=== PATIENT | female | born 1985 | race Caucasian/White ===

== ENCOUNTER 2019-04-01 23:59 | Day surgery (SDC) | payer OTHER, SELFPAY ==
--- OUTSIDE RECORDS SUMMARY | 2019-04-02 00:01 | XMS REPORT | Summary of Care ---
:1985 Author Organization [facility] Address [address] [place] [address]- Encounter HQ Curtisr_regis(FIN) [id number] Date(s): 01/19/18 - 01/19/18 [facility] [address] [place] [address]- [place] Discharge Disposition: Home or Self Care Attending Physician: Yani Swanson MD Vital Signs Most recent to oldest [Reference Range]: 1 Height 182.88 cm (01/19/18 11:18 AM) Temperature Oral [96.4-99.1 DegF] 97.4 DegF (01/19/18 11:18 AM) Blood Pressure [90-140/60-90 mmHg] 107/72 mmHg (01/19/18 11:18 AM) Respiratory Rate [14-20 BRMIN] 18 BRMIN (01/19/18 11:18 AM) Peripheral Pulse Rate [60-100 bpm] 56 bpm *LOW* (01/19/18 11:18 AM) Weight 78.409 kg (01/19/18 11:18 AM) Body Mass Index 23.44 m2 (01/19/18 11:18 AM) Problem List Condition Effective Dates Status Health Status Informant No Chronic Problems Active Chickenpox(Confirmed) Resolved Allergies, Adverse Reactions, Alerts Substance Reaction Severity Status penicillins Active Codeine Sulfate Active Medications Flonase 0.05 mg/inh nasal spray 2 spray, NASAL, Daily, # 16 gm, 1 Refill(s) Start Date: 01/19/18 Status: Ordered Results No data available for this section Immunizations No data available for this section Procedures Procedure Date Related Diagnosis Body Site Status Bunionectomy Completed Social History Social History Type Response Substance Abuse Use: None. Employment/School Status: Employed. 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 Alcohol Never Smoking Status Never smoker; Exposure to Tobacco Smoke None; Cigarette Smoking Last 365 Days No; Reg Smoking Cessation Counseling No entered on: 04/19/18 Assessment and Plan No data available for this section
--- OUTSIDE RECORDS SUMMARY | 2019-04-02 00:01 | XMS REPORT | Clinical Summary ---
:1985 Author Organization [facility] Address [address] [place] [address] Care Team Providers Name Role Phone Asked, No Pcp Primary Care Provider Unavailable Allergies Active Allergy Reactions Severity Noted Date Comments Codeine 08/22/2017 Hydrocodone Hives Low 08/17/2012 Penicillins Hives Low 08/17/2012 Medications Medication Sig Dispensed Refills Start Date End Date Status azelastine (ASTELIN) U 2 SPRAYS IEN 0 04/19/2018 Active 137 mcg (0.1 %) nasal BID FOR 10 DAYS spray valACYclovir (VALTREX) TK 1 T PO QD UTD 1 04/25/2018 Active 500 MG tablet Active Problems Problem Noted Date Closed fracture of lateral portion of left tibial plateau 07/24/2018 Knee effusion, left 07/11/2018 Acute pain of left knee 07/11/2018 Abdominal pain during in third trimester 08/22/2017 40 weeks gestation of 08/22/2017 08/22/2017 Encounters Date Type Specialty Care Team Description 10/06/2018 Office Visit Orthopedic Surgery Raghu Garcia Closed fracture of MD Shen lateral portion of left tibial plateau with routine healing, subsequent encounter (Primary Dx) 08/18/2018 Office Visit Orthopedic Surgery Rgahu Garcia Closed fracture of lateral portion of left tibial plateau, initial encounter (Primary Dx); MD Shen Sprain of medial collateral ligament of left knee, subsequent encounter 07/21/2018 Hospital Encounter Radiology Raghu Garcai MD 07/21/2018 Office Visit Orthopedic Raghu Nava Closed fracture of lateral portion of left tibial plateau, initial encounter (Primary Dx); MD Shen Sprain of medial collateral ligament of left knee, subsequent encounter 07/19/2018 Orders Only Orthopedic Surgery Madan, Acute pain of left knee; VICENTE Singletary Knee effusion, left 07/11/2018 Office Visit Orthopedic Surgery Raghu Garcia Acute pain of left knee (Primary Dx); MD Shen Knee effusion, left after 04/01/2018 Social History Tobacco Use Types Packs/Day Years Used Date Never Smoker Smokeless Tobacco: Never Used Alcohol Use Drinks/Week oz/Week Comments No Sex Assigned at Date Recorded Not on file Job Start Date Occupation Industry Not on file Not on file Not on file Travel History Travel Start Travel End No recent travel history available. Last Filed Vital Signs Vital Sign Reading Time Taken Blood Pressure 115/72 10/06/2018 9:52 AM OFFENSIVE COORDINATOR Pulse - - Temperature - - Respiratory Rate - - Oxygen Saturation - - Inhaled Oxygen Concentration - - Weight 77.1 kg (170 lb) 10/06/2018 9:52 AM OFFENSIVE COORDINATOR Height 182.9 cm (6') 10/06/2018 9:52 AM OFFENSIVE COORDINATOR Body Mass Index 23.06 10/06/2018 9:52 AM OFFENSIVE COORDINATOR Plan of Treatment Health Maintenance Due Date Last Done Comments INFLUENZA VACCINE 06/07/2019 08/08/2017 Procedures Procedure Name Priority Date/Time Associated Diagnosis Comments XR KNEE 3 VW LEFT Routine 10/06/2018 9:53 AM Closed fracture of Results for this OFFENSIVE COORDINATOR lateral portion of procedure are in left tibial plateau the results with routine section. healing, subsequent encounter XR KNEE 3 VW LEFT Routine 08/18/2018 11:02 AM Closed fracture of Results for this CDT lateral portion of procedure are in left tibial plateau, the results initial encounter section. MRI KNEE WO Routine 07/19/2018 3:07 PM Acute pain of left CONTRAST LEFT CDT knee Knee effusion, left MRI LOWER EXTREMITY Routine 07/18/2018 12:00 AM Results for this EXTERNAL STUDY CDT procedure are in the results section. XR KNEE 3 VW LEFT Routine 07/11/2018 10:13 AM Left knee pain, Results for this CDT unspecified procedure are in chronicity the results section. after 04/01/2018 Results XR Knee 3 Vw Left (10/06/2018 9:53 AM OFFENSIVE COORDINATOR)Only the most recent of3 resultswithin the time period is included. Specimen Narrative Performed At Knee films show the fracture is not visible. No specific abnormalities. [facility] Performing Organization Address City/State/Zipcode Phone Number [facility] [address] [place] [address] MRI Knee Left Wo Contrast (07/19/2018 3:07 PM CDT) Narrative Performed At Performing Organization Address City/State/Zipcode Phone Number [facility] [address] [place] [address] MRI Lower Extremity External Study (07/18/2018 12:00 AM CDT) Specimen Narrative Performed At This exam was not acquired at a [facility] facility and has not been [facility] interpreted by a [facility] Provider.The exam was imported into our imaging system for comparisons purposes. Performing Organization Address City/State/Zipcode Phone Number [facility] [address] [place] [address] after 04/01/2018 Advance Directives Patient has advance care planning documents, and code status on file. For more information, please contact:Presley Hughes[address] [place] [address] Code Status Date Activated Date Inactivated Comments Full Code 08/22/2017 6:44 AM 08/23/2017 8:47 AM Code Status decision reached by: Patient Full Code 08/22/2017 6:31 AM 08/22/2017 6:44 AM Code Status decision reached by: Patient
--- OUTSIDE RECORDS SUMMARY | 2019-04-02 00:01 | XMS REPORT | Summary of Care ---
:1985 Author Organization [facility] Address [address] [address]- Encounter HQ Harvey_regis(FIN) [id number] Date(s): 04/19/18 - 04/19/18 [facility] [place] [address]- Discharge Disposition: Home or Self Care Attending Physician: Stiven Bacon MD Vital Signs Most recent to oldest [Reference Range]: 1 Height 182.88 cm (04/19/18 1:10 PM) Temperature Oral [96.4-99.1 DegF] 98.3 DegF (04/19/18 1:10 PM) Blood Pressure [90-140/60-90 mmHg] 116/73 mmHg (04/19/18 1:10 PM) Peripheral Pulse Rate [60-100 bpm] 75 bpm (04/19/18 1:10 PM) Weight 75.114 kg (04/19/18 1:10 PM) Body Mass Index 22.46 m2 (04/19/18 1:10 PM) Problem List Condition Effective Dates Status Health Status Informant No Chronic Problems Active Chickenpox(Confirmed) Resolved Allergies, Adverse Reactions, Alerts Substance Reaction Severity Status penicillins Active Codeine Sulfate Active Medications Astelin 137 mcg/inh nasal spray 2 spray, NASAL, BID, # 1 ea, 0 Refill(s), Pharmacy: [facility] [id number] Start Date: 04/19/18 Stop Date: 04/29/18 Status: OrderedvalACYclovir 500 mg oral tablet 500 mg=1 tab, PO, Daily, 0 Refill(s) Start Date: 04/19/18 Status: OrderedZithromax Z-Nitesh 250 mg oral tablet See Instructions, Take 2 tablets by mouth the first day then 1 tablet by mouth days 2-5., X 5 day, #6 tab, 0 Refill(s), Pharmacy: [facility] [id number] Start Date: 04/19/18 Stop Date: 04/24/18 Status: Ordered Results No data available for [...]
--- OUTSIDE RECORDS SUMMARY | 2019-04-02 00:01 | XMS REPORT | Continuity of Care Document ---
:1985 Author Organization Interface Problems Problem Status Onset Classification Date Comments Source Date Reported Chickenpox Resolved Problem 04/27/2018 [facility] Medications Medication Details Route Status Patient Ordering Order Source Instructions Provider Date {6 (Azithromycin See Active 250 MG Oral Instructions 018 Medical Tablet , Take 2 Group [Zithromax]) } tablets by Pack [Z-PAKS] mouth the first day then 1 tablet by mouth days 2-5., X 5 day, # 6 tab, 0 Refill(s), Pharmacy: [facility] [id number] Azelastine 2 spray, Active hydrochloride NASAL, BID, 018 Medical 0.137 MG/ACTUAT # 1 ea, 0 Group Metered Dose Refill(s), Nasal [facility]: [[facility]] [facility] [id number] valACYclovir 500 500 mg=1 Active mg oral tablet tab, PO, 018 Medical Daily, 0 Group Refill(s) Fluticasone 2 spray, Active propionate 0.05 NASAL, 018 Medical MG/ACTUAT Daily, # 16 Group Metered Dose gm, 1 Nasal [place] Refill(s) [Flonase] Allergies, Adverse Reactions, Alerts Substance Category Reaction Severity Reaction Status Date Comments Source type Reported penicillins Assertion Drug Active allergy Medical Group Codeine Assertion Drug Active Sulfate allergy Medical Group Immunizations Immunization Date Given Site Status Last Updated Comments Source Results Order Results Value Reference Date Interpretation Comments Source Name Range Vital Signs Vital Sign Value Date Comments Source Weight 75.114 04/19/2018 Medical Group BMI Calculated 22.46 04/19/2018 Medical [facility] Height 182.88 cm 04/19/2018 Medical Group Systolic (mm Hg) 116 04/19/2018 Medical Group Diastolic (mm Hg) 73 04/19/2018 Medical Group Heart Rate 75 04/19/2018 Medical Group Temperature Oral (F) 98.3 F 04/19/2018 Medical [facility] Heart Rate 56 01/19/2018 Medical Group Systolic (mm Hg) 107 01/19/2018 Medical Group Diastolic (mm Hg) 72 01/19/2018 Medical Group Height 182.88 cm 01/19/2018 Medical Group Temperature Oral (F) 97.4 F 01/19/2018 Medical Group Respitory Rate 18 01/19/2018 Medical Group Weight 78.409 01/19/2018 Medical Group BMI Calculated 23.44 01/19/2018 Medical [facility] Encounters Location Location Encounter Encounter Reason Attending ADM DC Status Source Details Type Number For Provider Date Date Visit Outpatient [id number] MAGALI AC 09/15 [facility] Outpatient [id number] YANI 01/19 [facility] Outpatient [id number] Yani 01/19 01/20 [facility] [facility] Outpatient [id number] [place] 04/19 [facility] Outpatient [id number] St[facility] 04/19 04/20 [facility]2017 [facility] Procedures Procedure Code Date Perfomer Comments Source Bunionectomy [id number] Medical [facility]
[2019-04-02 00:43] LABS: Absolute Lymphocytes (CBC) 2.3 K/uL (0.7-4.9); Absolute Monocytes 0.6 K/uL (0.1-1.3); Absolute Neutrophil 11.8 K/uL (1.8-8.0); Basophils % 0.3 % (0-1.3); Eosinophils % 0.4 % (0-4.4); Hematocrit 40.4 % (36.0-45.0); Lymphocytes % 15.6 % (15.3-44.8); MPV 8.6 fL (7.6-11.3); Monocytes % 4.2 % (3.3-12.3); RBC Red Blood Cell Count 4.38 M/uL (3.86-4.86)
[2019-04-02] MEDS ORDERED: NA CHLORIDE 0.9% 1,000 ML ONE (00:43)
[2019-04-02] MEDS ORDERED: MORPHINE 2 MG/ML SYR ONE (00:43)
[2019-04-02] MEDS ORDERED: ONDANSETRON 4 MG/2 ML VIAL ONE (00:43)
[2019-04-02 00:51] LABS: Urine Blood TRACE (NEG); Urine Glucose NEGATIVE (NEG); Urine Protein NEGATIVE (NEG); Urine Specific Gravity >1.030 (1.005-1.030); Urine pH 5.5 (5.0-7.0)
[2019-04-02 00:55] LABS: Urine Bacteria <20 /HPF (<20); Urine Culture Reflex Order NOT NEEDED; Urine RBC <5 /HPF (NONE SEEN)
[2019-04-02 01:00] LABS: Bilirubin Direct 0.1 mg/dL (0-0.2); Bilirubin Total 0.3 mg/dL (0.2-1.0); Potassium 3.3 mmol/L (3.5-5.1); Protein, Total 7.3 g/dL (6.4-8.2)
[2019-04-02] MEDS ORDERED: CEFOXITIN/SWI 1gm 1 GM/10 ML SYR ONE (05:58)
[2019-04-02] MEDS ORDERED: NA CHLORIDE 0.9% 50 ML IV ONE (05:59)
--- NOTE | 2019-04-02 06:11 | EDPHYS ---
Physician Documentation [facility] Name: Shelia Adams Age: 33 yrs Sex: Female : 1985 Arrival Date: 04/01/2019 Time: 23:59 Bed 13 Private MD: ED Physician Aaron Ortega HPI: 04/02 00:15 This 33 yrs old Female presents to ER via Ambulatory with complaints of cp Abdominal Pain. 00:15 The patient presents with abdominal pain right adnexal area. Onset: The cp symptoms/episode began/occurred suddenly, today. The symptoms do not radiate. 00:15 Associated signs and symptoms: Pertinent positives: nausea and vomiting, Pertinent cp negatives: blood in stools, constipation, diarrhea, dysuria, fever, vaginal discharge. 00:15 The symptoms are described as constant. Modifying factors: the symptoms are aggravated cp by movement, pressure. 00:15 Patient reports sudden onset of RLQ abdomen pain while at movies tonight. cp Historical: - Allergies: 00:02 PENICILLINS; la1 00:02 Codeine; la1 - PMHx: 00:02 None; la1 - Immunization history:: Adult Immunizations up to date. - Social history:: Smoking status: Patient/guardian denies using tobacco. - Ebola Screening: : No symptoms or risks identified at this time. ROS: 00:20 Constitutional: Negative for body aches, chills, fever, poor PO intake. cp 00:20 Eyes: Negative for injury, pain, redness, and discharge. cp 00:20 ENT: Negative for drainage from ear(s), ear pain, sore throat, difficulty swallowing, difficulty handling secretions. 00:20 Cardiovascular: Negative for chest pain, palpitations. 00:20 Respiratory: Negative for cough, shortness of breath, wheezing. 00:20 Abdomen/GI: Positive for abdominal pain, nausea, vomiting, of the right lower quadrant, Negative for diarrhea, constipation, black/tarry stool, rectal bleeding. 00:20 : Negative for urinary symptoms, vaginal bleeding, vaginal discharge. 00:20 Skin: Negative for cellulitis, rash. 00:20 All other systems are negative. Exam: 00:23 Constitutional: The patient appears in no acute distress, alert, awake, non-toxic, well cp developed, well nourished, uncomfortable. 00:23 Head/Face: Normocephalic, atraumatic. cp 00:23 Eyes: Periorbital structures: appear normal, Conjunctiva: normal, no exudate, no injection, Sclera: no appreciated abnormality, Lids and lashes: appear normal, bilaterally. 00:23 ENT: External ear(s): are unremarkable, Nose: is normal, Mouth: is normal, Posterior pharynx: is normal, airway is patent, no erythema, no exudate. 00:23 Neck: ROM/movement: is normal, is supple, without pain. 00:23 Chest/axilla: Inspection: normal, Palpation: is normal, no crepitus, no tenderness. 00:23 Cardiovascular: Rate: normal, Rhythm: regular. 00:23 Respiratory: the patient does not display signs of respiratory distress, Respirations: normal, no use of accessory muscles, no retractions, no splinting, no tachypnea, labored breathing, is not present, Breath sounds: are clear throughout, no decreased breath sounds, no stridor, no wheezing. 00:23 Abdomen/GI: Inspection: abdomen appears normal, Bowel sounds: active, Palpation: soft, in all quadrants, moderate abdominal tenderness, in the right lower quadrant, rebound tenderness, is not appreciated, voluntary guarding, is elicited in the right lower quadrant. 00:23 Back: pain, is absent, ROM is normal. Vital Signs: 00:03 BP 111 / 67; Pulse 83; Resp 16; Temp 98.2; Pulse Ox 98% on R/A; Weight 70.31 kg; Height la1 6 ft. 0 in. (182.88 cm); Pain 5/10; 01:00 BP 105 / 61; Pulse 89; Resp 18; Pulse Ox 100% ; Pain 2/10; rr5 02:00 BP 97 / 60; Pulse 80; Resp 16; Pulse Ox 99% on R/A; Pain 2/10; rr5 03:00 BP 102 / 62; Pulse 87; Resp 17; Pulse Ox 98% ; rr5 04:00 BP 95 / 61; Pulse 81; Resp 18; Pulse Ox 99% ; rr5 05:33 BP 98 / 60; Pulse 65; Resp 16; Temp 98; Pulse Ox 99% on R/A; rr5 06:48 BP 91 / 54; Pulse 61; Resp 17; Temp 98.5; Pulse Ox 99% on R/A; rr5 08:00 BP 89 / 58; Pulse 64; Resp 18; Temp 98.0; Pulse Ox 99% on R/A; Pain 2/10; ph 00:03 Body Mass Index 21.02 (70.31 kg, 182.88 cm) la1 MDM: 00:07 Patient medically screened. cp 04/02 00:16 Order name: Basic Metabolic Panel; Complete Time: 01:08 cp 04/02 00:16 Order name: CBC with Diff; Complete Time: 01:08 cp 04/02 02:50 Interpretation: Normal except: WBC 14.8; MITCH% 79.5; NEUT A 11.8. cp 04/02 00:16 Order name: Creatinine for Radiology; Complete Time: 01:08 cp 04/02 00:16 Order name: Hepatic Function; Complete Time: 01:08 cp 04/02 00:16 Order name: Lipase; Complete Time: 01:08 cp 04/02 00:18 Order name: Urine Microscopic Only; Complete Time: 01:08 cp 04/02 02:51 Interpretation: Reviewed. cp 04/02 00:18 Order name: CT Abd/Pelvis - W/Contrast cp 04/02 00:33 Order name: US Transvaginal Study (Probe): r/o torsion; Complete Time: 19:56 cp 04/02 19:56 Interpretation: Reviewed report. cp 04/02 00:45 Order name: Urine Dipstick--Ancillary (enter results); Complete Time: 01:08 ag4 04/02 00:45 Order name: Urine --Ancillary (enter results); Complete Time: 01:08 ag4 04/02 00:16 Order name: IV Saline Lock; Complete Time: 01:12 cp 04/02 00:16 Order name: Labs collected and sent; Complete Time: 01:12 cp 04/02 00:18 Order name: Urine Test (obtain specimen); Complete Time: 01:12 cp 04/02 00:18 Order name: Urine Dipstick-Ancillary (obtain specimen); Complete Time: 01:12 cp 04/02 06:22 Order name: NPO EDMS Administered Medications: 00:50 Drug: NS 0.9% 1000 ml Route: IV; Rate: 1 bolus; Site: right antecubital; rr5 02:30 Follow up: Response: No adverse reaction; IV Status: Completed infusion; IV Intake: rr5 1000ml 00:52 Drug: Zofran 4 mg Route: IVP; Site: right antecubital; rr5 02:00 Follow up: Response: No adverse reaction rr5 00:54 Drug: morphine 2 mg Route: IVP; Site: right antecubital; rr5 02:00 Follow up: Response: No adverse reaction rr5 05:50 Dru grams of (cefOXitin 1 grams, NS 0.9% 50 ml) Route: IVPB; Infused Over: 30 mins; rr5 Site: right antecubital; 06:20 Follow up: Response: No adverse reaction; IV Status: Completed infusion; IV Intake: [id number] Disposition: 04/02/19 06:11 Hospitalization ordered by Shoaib Martinez for Inpatient Admission. Preliminary diagnosis is Acute appendicitis. - Bed requested for Telemetry/MedSurg (Inpatient). - Status is Inpatient Admission. ph - Condition is Stable. - Problem is new. - Symptoms are unchanged. UTI on Admission? No Addendum: 04/03/2019 19:37 Co-signature as Attending Physician, Aaron Ortega MD. g s Signatures: Dispatcher [employer] EDMS nIocente Galvan RN RN la1 Glenny Scruggs RN RN ph Page, Corey, PA PA cp Starr, Gregory, MD MD Med Marie RN RN rr5 Corrections: (The following items were deleted from the chart) 04/02 08:18 06:11 Hospitalization Ordered by Shoaib Martinez MD for Inpatient Admission. Preliminary ph diagnosis is Acute appendicitis. Bed requested for Telemetry/MedSurg (Inpatient). Status is Inpatient Admission. Condition is Stable. Problem is new. Symptoms are unchanged. UTI on Admission? No. gs
--- NOTE | 2019-04-02 06:11 | ER ---
Nurse[facility] Name: Shelia Adams Age: 33 yrs Sex: Female : 1985 Arrival Date: 04/01/2019 Time: 23:59 Bed 13 Private MD: Diagnosis: Acute appendicitis Presentation: 04/02 00:02 Presenting complaint: Patient states: Severe RLQ pain and vomiting. Transition of care: la1 patient was not received from another setting of care. Onset of symptoms was April 02, 2019. Risk Assessment: Do you want to hurt yourself or someone else? Patient reports no desire to harm self or others. Initial Sepsis Screen: Does the patient meet any 2 criteria? No. Patient's initial sepsis screen is negative. Does the patient have a suspected source of infection? No. Patient's initial sepsis screen is negative. Care prior to arrival: None. 00:02 Method Of Arrival: Ambulatory la1 00:02 Acuity: MANDY 3 la1 Historical: - Allergies: 00:02 PENICILLINS; la1 00:02 Codeine; la1 - PMHx: 00:02 None; la1 - Immunization history:: Adult Immunizations up to date. - Social history:: Smoking status: Patient/guardian denies using tobacco. - Ebola Screening: : No symptoms or risks identified at this time. Screenin:30 Abuse screen: Denies threats or abuse. Denies injuries from another. Nutritional rr5 screening: No deficits noted. Tuberculosis screening: No symptoms or risk factors identified. Fall Risk IV access (20 points). Total [place] Fall Scale indicates No Risk (0-24 pts). Assessment: 00:05 General: Appears in no apparent distress. uncomfortable, Behavior is calm, cooperative, rr5 appropriate for age. Pain: Complains of pain in abdomen Pain does not radiate. Pain currently is 5 out of 10 on a pain scale. Quality of pain is described as aching, Pain began gradually, Is intermittent. 00:05 Neuro: Level of Consciousness is awake, alert, obeys commands, Oriented to person, rr5 place, time, situation, Appropriate for age. Cardiovascular: Capillary refill < 3 seconds Patient's skin is warm and dry. Respiratory: Airway is patent Respiratory effort is even, unlabored, Respiratory pattern is regular, symmetrical. GI: Abdomen is flat, Bowel sounds present X 4 quads. Abd is soft Guarding noted in right lower quadrant Reports lower abdominal pain, upper abdominal pain, nausea, vomiting. : No signs and/or symptoms were reported regarding the genitourinary system. EENT: No signs and/or symptoms were reported regarding the EENT system. Derm: Skin is intact, Skin temperature is warm. Musculoskeletal: Capillary refill < 3 seconds, Range of motion: intact in all extremities. 01:10 Reassessment: Patient appears in no apparent distress at this time. No changes from rr5 previously documented assessment. Patient is alert, oriented x 3, equal unlabored respirations, skin warm/dry/pink. awaiting for CT scan procedure. oral contrast consumed, CT staff informed. 02:00 Reassessment: Patient appears in no apparent distress at this time. Patient is alert, rr5 oriented x 3, equal unlabored respirations, skin warm/dry/pink. Patient states symptoms have improved. 02:33 Reassessment: Patient appears in no apparent distress at this time. Patient is alert, rr5 oriented x 3, equal unlabored respirations, skin warm/dry/pink. no complaints made. awaiting for CT procedure. 03:05 Reassessment: Patient appears in no apparent distress at this time. sent for CT scan. rr5 03:32 Reassessment: Patient appears in no apparent distress at this time. Patient is alert, rr5 oriented x 3, equal unlabored respirations, skin warm/dry/pink. went back from CT scan. 04:10 Reassessment: Patient appears in no apparent distress at this time. asleep on bed rr5 comfortably. 04:50 Reassessment: Dr. james from radiology called ([id number]) relayed the result of rr5 CTscan minimal inflammation of the distal appendix. secondary acute early appendix. ED provider aware. 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. 06:25 Reassessment: Patient appears in no apparent distress at this time. Patient is alert, rr5 oriented x 3, equal unlabored respirations, skin warm/dry/pink. patient decided to stay here for the admission. 06:35 Reassessment: Patient appears in no apparent distress at this time. Patient is alert, rr5 oriented x 3, equal unlabored respirations, skin warm/dry/pink. OR staff called and said they will get the patient going to OR. 07:00 Reassessment: Patient appears in no apparent distress at this time. Patient and/or rr5 family updated on plan of care and expected duration. Pain level reassessed. Patient is alert, oriented x 3, equal unlabored respirations, skin warm/dry/pink. no complaints made awaiting for OR staff. 08:00 Reassessment: Patient appears in no apparent distress at this time. Patient and/or ph family updated on plan of care and expected duration. Pain level reassessed. Patient is alert, oriented x 3, equal unlabored respirations, skin warm/dry/pink. Pt resting quietly, rates pain 5/10 and denies nausea at this time, family at bedside, waiting to go to surgery. 08:10 Reassessment: Pt taken to OR via stretcher. ph Vital Signs: 00:03 BP 111 / 67; Pulse 83; Resp 16; Temp 98.2; Pulse Ox 98% on R/A; Weight 70.31 kg; Height la1 6 ft. 0 in. (182.88 cm); Pain 5/10; 01:00 BP 105 / 61; Pulse 89; Resp 18; Pulse Ox 100% ; Pain 2/10; rr5 02:00 BP 97 / 60; Pulse 80; Resp 16; Pulse Ox 99% on R/A; Pain 2/10; rr5 03:00 BP 102 / 62; Pulse 87; Resp 17; Pulse Ox 98% ; rr5 04:00 BP 95 / 61; Pulse 81; Resp 18; Pulse Ox 99% ; rr5 05:33 BP 98 / 60; Pulse 65; Resp 16; Temp 98; Pulse Ox 99% on R/A; rr5 06:48 BP 91 / 54; Pulse 61; Resp 17; Temp 98.5; Pulse Ox 99% on R/A; rr5 08:00 BP 89 / 58; Pulse 64; Resp 18; Temp 98.0; Pulse Ox 99% on R/A; Pain 2/10; ph 00:03 Body Mass Index 21.02 (70.31 kg, 182.88 cm) la1 ED Course: 04/01 23:59 Patient arrived in ED. am2 04/02 00:03 Triage completed. la1 00:03 Arm band placed on left wrist. la1 00:05 Med Marie, MARK is Primary Nurse. rr5 00:07 Devin Ramos PA is PHCP. cp 00:07 Aaron Ortega MD is Attending Physician. cp 00:50 Inserted saline lock: 22 gauge in right antecubital area, using aseptic technique. rr5 ,using aseptic technique. inserted by prabhakar Blood collected. 03:52 US Transvaginal Study (Probe): r/o torsion In Process Unspecified. EDMS 04:21 CT Abd/Pelvis - W/Contrast In Process Unspecified. EDMS 06:11 Shoaib Martinez MD is Hospitalizing Provider. gs 07:30 Patient has correct armband on for positive identification. Placed in gown. Bed in low ph position. Call light in reach. Side rails up X 1. Pulse ox on. NIBP on. Door closed. Noise minimized. Warm blanket given. 08:16 No provider procedures requiring assistance completed. Patient admitted, IV remains in ph place. Administered Medications: 00:50 Drug: NS 0.9% 1000 ml Route: IV; Rate: 1 bolus; Site: right antecubital; rr5 02:30 Follow up: Response: No adverse reaction; IV Status: Completed infusion; IV Intake: rr5 1000ml 00:52 Drug: Zofran 4 mg Route: IVP; Site: right antecubital; rr5 02:00 Follow up: Response: No adverse reaction rr5 00:54 Drug: morphine 2 mg Route: IVP; Site: right antecubital; rr5 02:00 Follow up: Response: No adverse reaction rr5 05:50 Dru grams of (cefOXitin 1 grams, NS 0.9% 50 ml) Route: IVPB; Infused Over: 30 mins; rr5 Site: right antecubital; 06:20 Follow up: Response: No adverse reaction; IV Status: Completed infusion; IV Intake: [id number] Intake: 02:30 IV: 1000ml; Total: 1000ml. rr5 06:20 IV: 50ml; Total: 1050ml. rr5 06:55 voided freely. rr5 Output: 06:55 Other: 1; Total: 0ml. rr5 06:55 voided freely. rr5 Outcome: 06:11 Decision to Hospitalize by Provider. 08:17 Admitted to OR accompanied by nurse, family with patient, via stretcher. ph 08:17 Condition: stable 08:17 Instructed on the need for admit. 08:18 Patient left the ED. ph Signatures: Dispatcher [employer] EDMS Inocente Galvan RN RN la1 Glenny Scruggs RN RN ph Devin Ramos PA PA cp Moreno, Amanda am2 Starr, Gregory, MD MD Med Marie RN RN rr5
[2019-04-02] MEDS ORDERED: ONDANSETRON 4 MG/2 ML VIAL IV PRN (06:20)
[2019-04-02] MEDS ORDERED: MORPHINE 4 MG/ML SYR IV PRN (06:20)
[2019-04-02] MEDS ORDERED: D5 0.45 NS 1,000 ML IV SCH (07:00)
[2019-04-02] MEDS ORDERED: D5 0.45 NS 1,000 ML IV ONE (07:05)
[2019-04-02] MEDS ORDERED: Ringers Lactate 1,000 ML IV ONE (08:36)
[2019-04-02] MEDS ORDERED: BUPIVACA 0.25%/EPI 0.0005% MDV 50 ML VIAL ONE (08:44)
[2019-04-02] MEDS ORDERED: SUCCINYLCHOLINE 20 MG/ML (10 ML) IV ONE (09:00)
[2019-04-02] MEDS ORDERED: PROPOFOL 200 MG/20 ML VIAL IV ONE (09:02)
[2019-04-02] MEDS ORDERED: FENTANYL CITR 100 MCG/2 ML ONE (09:02)
[2019-04-02] MEDS ORDERED: MIDAZOLAM HCL 2 MG/2 ML INJ ONE (09:03)
--- NOTE | 2019-04-02 09:28 | RAD REPORT ---
EXAM DESCRIPTION: US - Transvaginal Study Probe - 04/02/2019 3:53 am CLINICAL HISTORY: Pelvic pain COMPARISON: April 02, 2019 cat scan FINDINGS: The uterus measures 8 x 4 x 6 centimeters. An IUD is present within the endometrium of the uterine fundus. Endometrial stripe is not thickened. A fibroid is not seen The ovaries are normal in size and echotexture. Blood flow within the ovaries. An adnexal mass is not visualized. Small amount of free fluid. IMPRESSION: IUD in good position Small amount of free fluid
--- NOTE | 2019-04-02 09:49 | P.OP ---
Preoperative diagnosis: Acute Appendicitis Postoperative diagnosis: Acute Appendicitis Primary procedure: Laparoscopic Appendectomy Anesthesia: GETA + Local Estimated blood loss: <5 cc Specimen: Vermiform Appendix Findings: Early Acute Appendicitis Complications: None Transferred to: Recovery Room Condition: Good
[2019-04-02] MEDS ORDERED: ROCURONIUM 50 MG/5 ML VIAL IV ONE (09:58)
[2019-04-02] MEDS ORDERED: GLYCOPYRROLATE 0.2 MG/ML SYR ONE (09:59)
[2019-04-02] MEDS ORDERED: KETOROLAC 30 MG/ML INJ ONE (10:35)
--- OUTSIDE RECORDS SUMMARY | 2019-04-02 10:37 | XMS REPORT | Clinical Summary ---
:1985 Author Organization [facility] Address [address] [place] [address] Care Team Providers Name Role Phone Asked, [...] (Primary Dx) 08/18/2018 Office Visit Orthopedic Surgery Raghu Garcia Closed fracture of lateral portion of left tibial plateau, initial encounter (Primary Dx); MD Shen Sprain of medial collateral ligament of left knee, subsequent encounter 07/21/2018 Hospital Encounter Radiology Raghu Garcia MD 07/21/2018 Office Visit Orthopedic Raghu Nava [...] Taken Blood Pressure 115/72 10/06/2018 9:52 AM PARTY DIRECTOR Pulse - - Temperature - - Respiratory Rate - - Oxygen Saturation - - Inhaled Oxygen Concentration - - Weight 77.1 kg (170 lb) 10/06/2018 9:52 AM PARTY DIRECTOR Height 182.9 cm (6') 10/06/2018 9:52 AM PARTY DIRECTOR Body Mass Index 23.06 10/06/2018 9:52 AM PARTY DIRECTOR Plan of Treatment Health Maintenance Due Date Last Done Comments INFLUENZA VACCINE 06/07/2019 08/08/2017 Procedures Procedure Name Priority Date/Time Associated Diagnosis Comments XR KNEE 3 VW LEFT Routine 10/06/2018 9:53 AM Closed fracture of Results for this PARTY DIRECTOR lateral portion of procedure are in left [...] Knee 3 Vw Left (10/06/2018 9:53 AM PARTY DIRECTOR)Only the most recent of3 resultswithin the time period is included. Specimen Narrative Performed At Knee films show the fracture is not visible. No specific abnormalities. [facility] Performing Organization Address City/State/Zipcode Phone Number [email or web address] [address] [place] [address] MRI Knee Left Wo Contrast (07/19/2018 3:07 PM CDT) Narrative Performed At Performing Organization Address City/State/Zipcode Phone Number [facility] [address] [place] [address] MRI Lower Extremity External Study (07/18/2018 12:00 AM CDT) Specimen Narrative Performed At This exam was not acquired at a [facility] facility and has not been [facility] interpreted by a [facility] Provider.The exam was imported into our imaging system for comparisons purposes. Performing Organization Address City/State/Zipcode Phone Number [facility] [address] [place] [address] after 04/01/2018 Advance Directives Patient has advance care planning documents, and code status on file. For more information, please contact:Presley Hughes[address] [place] [address] Code Status Date Activated Date Inactivated Comments Full Code 08/22/2017 6:44 AM 08/23/2017 8:47 AM Code Status decision reached by: Patient Full Code 08/22/2017 6:31 AM 08/22/2017 6:44 AM Code Status decision reached by: Patient
--- OUTSIDE RECORDS SUMMARY | 2019-04-02 10:37 | XMS REPORT | Continuity of Care Document ---
[...] day, # 6 tab, 0 Refill(s), Pharmacy: [facility] [id number] Azelastine 2 spray, Active hydrochloride NASAL, BID, 018 Medical 0.137 MG/ACTUAT # 1 ea, 0 Group Metered Dose Refill(s), Nasal Loda Pharmacy: [[facility]] [facility] [id number] valACYclovir 500 500 mg=1 Active mg oral tablet tab, PO, 018 Medical Daily, 0 Group Refill(s) Fluticasone 2 spray, Active propionate 0.05 NASAL, 018 Medical MG/ACTUAT Daily, # 16 Group Metered Dose gm, 1 Nasal Loda Refill(s) [Flonase] Allergies, Adverse Reactions, Alerts Substance [...] Medical Group BMI Calculated 22.46 04/19/2018 Medical [facility] Height 182.88 cm 04/19/2018 Medical Group Systolic (mm Hg) 116 04/19/2018 Medical Group Diastolic (mm Hg) 73 04/19/2018 Medical Group Heart Rate 75 04/19/2018 Medical [facility] Temperature Oral (F) 98.3 F 04/19/2018 Medical [facility] Heart Rate 56 01/19/2018 Medical Group Systolic (mm Hg) 107 01/19/2018 Medical Group Diastolic (mm Hg) 72 01/19/2018 Medical [facility] Height 182.88 cm 01/19/2018 [facility] Temperature Oral (F) 97.4 F 01/19/2018 Medical Group Respitory Rate 18 01/19/2018 Medical Group Weight 78.409 01/19/2018 Medical Group BMI Calculated 23.44 01/19/2018 Medical [facility] Encounters Location Location Encounter Encounter Reason Attending ADM DC Status Source Details Type Number For Provider Date Date Visit Outpatient [id number] MAGALI AC 09/[address] [facility] [place] Outpatient [id number] YANI 01/19 [facility] Outpatient [id number] Yani 01/19 01/20 [facility] Outpatient [id number] MAPLE 04/19 [facility] Urgent Outpatient [id number] Stiven 04/19 04/20 [facility] Procedures Procedure Code Date Perfomer Comments Source Bunionectomy [id number] Medical [facility]
[2019-04-02] MEDS ORDERED: CEFOXITIN SODIUM 1 GM/VIAL IVPB SCH (12:00)
[2019-04-02] MEDS ORDERED: CEFOXITIN/SWI 1gm 1 GM/10 ML SYR IVP SCH ×2 (12:00)
--- NOTE | 2019-04-02 14:08 | HP ---
Date of Admission: 04/02/2019 Brief History Of Present Illness: The patient is a 33-year-old female, who presents to the ER with complaints of abdominal pain beginning yesterday. She thought was gas pain. It was located in the periumbilical region, now right lower quadrant. She thought was consistent with gas and cram ps were associated. There was no radiation through to her back. No associated nausea, vomiting. No change in bowel or bladder habits. She has no relevant gynecologic history related to this pain by report. Past Medical History: Essentially negative. Past Surgical History: She has had a bunionectomy. 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 Allergies: TO PENICILLIN AND CODEINE. Review of Systems: A 10-point review of systems on HPI denies. Physical Examination: Vital Signs: At the time of examination her BMI is 21.0. Blood pressure 89/58, pulse 64, respirator y rate 18, temperature is 98.0. General: She is awake, alert, and oriented. Psychiatric: She is a ppropriate, conversive. HEENT: She is normocephalic. Sclerae icteric. Mucous membranes are moist. Oropharynx is clear. Neck: Supple. No JVD. Chest: Normal expansion and excursion. Cardiovascular: Regular rate and rhythm. Pulmonary: Clear to auscultation bilaterally. Abdomen: Soft with positive right lower quadrant tenderness to palpation. Positive focal peritoniti s at McBurney's point. The remainder of abdominal exam is essentially benign. Extremities: No clubbing, cyanosis, edema. Skin: Warm and dry. Laboratory Data: Revealed a white blood cell count of 14.8, hemoglobin 13.7, hematocrit of 40.4, terrence trophils are 79%. Her platelet count is 182. Her sodium 142, potassium 3.3, chloride 110, carbon di oxide 26, BUN 15, creatinine 0.8, glucose is 108, calcium 8.3, total bilirubin 0.3, direct component 0.1, AST 27, ALT 27, alkaline phosphatase is 67, lipase 153. UA showed trace blood, otherwise essent ially negative. Urine test was negative. She had a CT scan for the abdomen and pelvis, wh ich was officially read as the appendix. The proximal appendix is normal appearance. Suggestion of minimal inflammatory change surrounding the distal appendix. Impression is minimal inflammation surr ounding the distal appendix may be secondary to early acute appendicitis in the appropriate clinical setting. Periportal edema and findings are nonspecific can be seen in intravenous hydration as well as hepatitis. Clinical correlation is recommended. An IUD is present. Uterus is unremarkable as ar e the ovaries. There is free fluid present within the pelvis. Fluid inflammatory stranding is prese nt over the right lower quadrant. No free air. Assessment And Plan: This is a 33-year-old female who comes in with signs of early appendicitis. 1.IV fluid hydration. 2.Antibiotic coverage. 3.I have explained risks, benefits, and alternatives of laparoscopic, possible open appendectomy inc luding but not limited to bleeding, infection, damage to surrounding tissue, need for further operati on procedure. The patient agrees to proceed as indicated. ROSE/HARRIETT Voice ID: [id number]
--- NOTE | 2019-04-02 14:17 | OP ---
Date of Procedure: 04/02/2019 Surgeon: Karolina Martinez MD, Postoperative Diagnosis: Acute appendicitis. Postoperative Diagnosis: Acute appendicitis. Procedure Performed: Laparoscopic appendectomy. Anesthesia: General endotracheal plus local with 0.25% Marcaine with epinephrine. Estimated Blood Loss: Less than 5 cc. Specimen: Vermiform appendix. Findings: Early acute appendicitis. Complications: None. Disposition: Transferred to recovery room in good condition. Procedure In Detail: After informed consent was obtained, the patient was brought to the operating r oom, prepped and draped in the usual sterile fashion. After adequate anesthesia was achieved and SCD s were on and pumping, an infraumbilical area was anesthetized with 0.25% Marcaine, sharply incised. A 5-mm trocar was introduced in the abdomen without evidence of complication under direct visualizat ion. There was no injury to vital structures upon entry to the abdomen. The abdomen was insufflated to 15 mmHg this time. The abdomen was inspected and there was murky fluid found in the right pericolic gutter as well as th e space of Retzius and pouch of Dilip. Additional trocar was chosen in the suprapubic position. This was similarly anesthetized, sharply in cised and 5-mm trocar was introduced in the abdomen without evidence of complication. The umbilical trocar was then up-sized to a 12 mm under direct visualization without evidence of complication. Add itional trocar site was chosen in the left lower quadrant. This was similarly anesthetized, sharply incised. A 5-mm trocar was introduced in the abdomen without evidence of complication. The patient was then positioned head down, right side up position. The murky fluid was suctioned out until compl etely clear and irrigated until completely clear. The appendix was then grasped and elevated and found to have mild inflammatory changes to it consiste nt with an early appendicitis. A mesoappendiceal window was created with the [place] retractor and the Endo JASON 35 blue load was fired across the base of the appendix with good approximation tissues. No leakage from the staple line at this time. No additional hemostatic maneuvers were required. Th e LigaSure was then used to take the mesoappendix down without evidence of complication with good hem ostasis. No additional hemostatic maneuvers were required at this point. The appendix was then plac ed in an EndoCatch bag, removed through the umbilical trocar, sent off for pathologic examination. T he area was then inspected one last time in the confluence of the cecum and staple line was found to be in good anatomic position without any evidence of leakage. The area was copiously irrigated multi ple times until completely clear. Additionally, the pelvis was then washed out in its entirety with approximately 2 L of fluid and suctioned out until completely clear. All adnexal structures were ins pected. There were slight inflammatory changes to the right and left salpinx, but the ovaries appear ed to be without any pathologic findings. Uterus also appeared to be normal in its appearance. The abdomen was then completely suctioned out, until completely dry. The patient was positioned in neutr al position. The abdomen was suctioned out one last time. The umbilical trocar was then removed and the umbilical trocar site was closed using a Sam-Ludy suture passer with 0 Vicryl in interrup karolina fashion with good approximation of tissues. The abdomen was completely desufflated under direct visualization without evidence of complication. All trocars were then removed. All skin incisions w ere copiously irrigated and closed with a 4-0 Monocryl in a running fashion. Dermabond was placed ov er top. The patient tolerated the procedure well without complication and transferred to PACU in good condition. All counts were correct at the end of the case. ROSE/HARRIETT Voice ID: [id number] Report ID: [id number]
--- NOTE | 2019-04-03 10:22 | RAD REPORT ---
EXAM DESCRIPTION: CT - Abdomen Pelvis W Contrast - 04/02/2019 4:53 am ADDENDUM #1 THIS REPORT CONTAINS FINDINGS THAT MAY BE CRITICAL TO PATIENT CARE: Notification that the physician was unable to speak on the phone occurred at 04/02/2019 4:53 AM CDT. I discussed the findings with Cristiano Jovel who agreed to take the results on the phone on behalf of the physician, and acknowledges leopoldo mosqueda critical nature. Electronically signed by: Mickie Mckeon MD 04/02/2019 4:54 AM CDT End of Addendum EXAM DESCRIPTION: CT Abdomen and Pelvis With Intravenous Contrast CLINICAL HISTORY: The patient is 33 years old and is Female; right lower abdomen pain TECHNIQUE: Axial computed tomography images of the abdomen and pelvis with intravenous contrast. S agittal and coronal reformatted images were created and reviewed. This CT exam was performed using one or more of the following dose reduction techniques: automated exposure control, adjustment of t he mA and/or kV according to patient size, and/or use of iterative reconstruction technique. COMPARISON: No relevant prior studies available. FINDINGS: LUNG BASES: Unremarkable. No mass. No consolidation. ABDOMEN: LIVER: Periportal edema is visualized within the liver. No liver masses identified. GALLBLADDER AND BILE DUCTS: The gallbladder is distended. PANCREAS: No ductal dilation. No mass. SPLEEN: Unremarkable. ADRENALS: Unremarkable. No mass. KIDNEYS AND URETERS: Unremarkable. No solid mass. No hydronephrosis. STOMACH AND BOWEL: Oral contrast distends the stomach. Oral contrast is present throughout major ity the small bowel. A moderate amount of stool is present throughout the colon. There is no mucosal thickening or evidence of bowel obstruction. PELVIS: APPENDIX: The proximal appendix is normal in appearance. There is suggestion of minimal inflamma tion surrounding the distal appendix. BLADDER: The bladder is well distended. REPRODUCTIVE: An IUD is present. The uterus is unremarkable as are the ovaries. ABDOMEN and PELVIS: INTRAPERITONEAL SPACE: Free fluid is present within the pelvis. Fluid and inflammatory strandi ng is present within the right lower quadrant. No free air. BONES/JOINTS: No acute fracture. SOFT TISSUES: The soft tissues are normal. VASCULATURE: Unremarkable. No abdominal aortic aneurysm. LYMPH NODES: Unremarkable. No enlarged lymph nodes. IMPRESSION: 1. Minimal inflammation surrounding the distal appendix which may be secondary to an e noemi acute appendicitis in the appropriate clinical setting. 2. Periportal edema. This finding is nonspecific and can be seen with vigorous intravenous hydratio n as well as hepatitis. Clinical correlation is recommended. Electronically signed by: Mickie Mckeon MD 04/02/2019 4:46 AM CDT Due to temporary technical issues with the PACS/Fluency reporting system, reports are being signed by the in house radiologist as a courtesy to ensure prompt reporting. The interpreting radiologist is f meccaly responsible for the content of the report.
== END 2019-04-02 15:00 | disposition home or self-care (01) ==
LOC: ER 23:59 → UNDOADMIN 04-02 06:19 → ERHOLD 04-02 06:19 → DS 04-02 08:18 → 4TH 04-02 09:53 → DS 04-02 15:00
PROVIDERS: ATTEND Surgery
PROC: 0DTJ4ZZ Resection of Appendix, Percutaneous Endoscopic Approach (ICD-10-PCS; principal; 2019-04-02 09:00)
DX: K35.80 Unspecified acute appendicitis (principal); Z88.0 Allergy status to penicillin; Z88.6 Allergy status to analgesic agent
CPT/HCPCS: 36415; 74177; 76830; 80048; 80076; 81003; 81015; 81025; 83690; 85025; 88304; 96361; 96365; 96375; 99285; J0330; J2250; J2270; J2405; J2704; J3010; J7030; Q9967